=== PATIENT | male | born 1940 | race Caucasian/White ===

== ENCOUNTER → 2017-05-05 | Outpatient (CLI) | payer MEDICARE, OTHER | END | disposition home or self-care (01) | LOC: HKI 13:48 | DX: M17.11 Unilateral primary osteoarthritis, right knee (principal) | CPT/HCPCS: 73562; 73562-50 ==

== ENCOUNTER 2017-05-08 01:54 | Emergency (ER) | payer MEDICARE, OTHER ==
[2017-05-08] MEDS: SILVER NITRATE SWAB TOP ×2 (02:24)
[2017-05-08] MEDS: LIDOCAINE 1% (MDV) 20 ML INJ SC (02:24)
[2017-05-08] MEDS: GELATIN POWDER 1 GM KIT TOP (02:24)
[2017-05-08] MEDS: DIPHTH/TET/ACEL PERTUSS (ADULT) 0.5 ML VIAL IM* (02:33)
[2017-05-08] MEDS: LIDOCAINE 2% (MDV) 20 ML INJ INJ (02:42)
== END 2017-05-08 04:38 | disposition home or self-care (01) ==
LOC: FTE 01:54
DX: S61.212A Laceration without foreign body of right middle finger without damage to nail, initial encounter (principal); I10 Essential (primary) hypertension; I50.9 Heart failure, unspecified; I25.10 Atherosclerotic heart disease of native coronary artery without angina pectoris; W29.0XXA Contact with powered kitchen appliance, initial encounter; Y92.9 Unspecified place or not applicable; Z79.01 Long term (current) use of anticoagulants; Z87.891 Personal history of nicotine dependence; Z98.61 Coronary angioplasty status; Z79.82 Long term (current) use of aspirin; Z95.0 Presence of cardiac pacemaker
CPT/HCPCS: 99282

== ENCOUNTER → 2017-05-19 | Outpatient (CLI) | payer MEDICARE, OTHER | END | disposition home or self-care (01) | LOC: HKI 13:58 | DX: Z01.818 Encounter for other preprocedural examination (principal) | CPT/HCPCS: G0463 ==

== ENCOUNTER → 2017-05-22 | Outpatient (CLI) | payer MEDICARE, OTHER | END | disposition home or self-care (01) | LOC: LAB 08:00 | DX: Z02.9 Encounter for administrative examinations, unspecified (principal) | CPT/HCPCS: 87081 ==

== ENCOUNTER 2017-06-01 06:00 | Inpatient (IN) | payer MEDICARE, OTHER ==
[2017-06-01] MEDS: DEXAMETHASONE 4 MG/ML 1 ML INJ IV (06:59)
[2017-06-01] MEDS: LANSOPRAZOLE 30 MG CAP PO (06:59)
[2017-06-01] MEDS: ONDANSETRON 4 MG INJ IV ×4 (06:59→22:30)
[2017-06-01] MEDS ORDERED: DEXAMETHASONE 4 MG/ML 1 ML INJ (07:00)
[2017-06-01] MEDS ORDERED: ROCURONIUM 50 MG INJ (07:00)
[2017-06-01] MEDS ORDERED: ONDANSETRON 4 MG INJ (07:00)
[2017-06-01] MEDS ORDERED: LIDOCAINE 2% (SDV) 5 ML INJ (07:00)
[2017-06-01] MEDS: ACETAMINOPHEN 1000MG/100ML IV 100 ML IVPB (07:00)
[2017-06-01] MEDS ORDERED: PROPOFOL 200 MG INJ (07:00)
[2017-06-01 07:25] LABS: ADD MAN DIFF? NO
[2017-06-01 07:30] LABS: BASOPHILS % 0.4 % (0.0-2.0); EOSINOPHILS # 0.1 10^3/ul (0.0-0.5); HEMATOCRIT 39.5 % (42.0-52.0); HEMOGLOBIN 13.8 g/dl (14.0-18.0); LYMPHOCYTES # 0.9 10^3/ul (0.8-2.9); LYMPHOCYTES % 12.4 % (15.0-51.0); MEAN CORPUSCULAR HEMOGLOBIN 33.6 pg (29.0-33.0); MEAN CORPUSCULAR HGB CONC 34.9 g/dl (32.0-37.0); MEAN CORPUSCULAR VOLUME 96.1 fl (82.0-101.0); MEAN PLATELET VOLUME 10.9 fl (7.4-10.4); MONOCYTE # 0.7 10^3/ul (0.3-0.9); MONOCYTES % 9.5 % (0.0-11.0); NEUTROPHIL # 5.1 10^3/ul (1.6-7.5); PLATELET COUNT 108 10^3/UL (140-415); RED BLOOD COUNT 4.11 10^6/ul (4.70-6.10); RED CELL DISTRIBUTION WIDTH 14.4 % (11.5-14.5)
[2017-06-01 07:30] LABS: WHITE BLOOD COUNT 6.8 10^3/ul (4.8-10.8)
[2017-06-01 07:46] LABS: INR 1.24; PARTIAL THROMBOPLASTIN TIME 26.8 Sec (25.0-35.0); PROTIME 15.8 Sec (11.9-14.9); PT RATIO 1.2
[2017-06-01 07:47] LABS: ALANINE AMINOTRANSFERASE 31 IU/L (13-69); ALBUMIN 3.8 g/dl (3.3-4.9); ALBUMIN/GLOBULIN RATIO 1.11; ALKALINE PHOSPHATASE 107 IU/L (42-121); ANION GAP 15 (8-16); ASPARTATE AMINO TRANSFERASE 29 IU/L (15-46); BILIRUBIN,INDIRECT 0.6 mg/dl (0-1.1); BILIRUBIN,TOTAL 0.6 mg/dl (0.2-1.3); CARBON DIOXIDE 26 mmol/L (21-31); CHLORIDE 104 mmol/L (97-110); GLUCOSE 99 mg/dl (70-220); TOTAL PROTEIN 7.2 g/dl (6.1-8.1)
[2017-06-01 07:48] LABS: BLOOD UREA NITROGEN 45 mg/dl (7-20); CALCIUM 9.1 mg/dl (8.4-10.2); POTASSIUM 4.6 mmol/L (3.5-5.1); SODIUM 140 mmol/L (135-144)
[2017-06-01] MEDS ORDERED: BUPIVACAINE 0.75%/DEXT (SPINAL) 2 ML INJ (07:52)
[2017-06-01] MEDS ORDERED: EPINEPHrine 1 MG INJ (07:53)
[2017-06-01] MEDS ORDERED: FENTAnyl 50 MCG/ML VIAL (07:54)
[2017-06-01] MEDS ORDERED: MIDAZOLAM 1 MG/ML 2 ML INJ (07:54)
[2017-06-01] MEDS: CEFAZOLIN 2 GM/50 ML (PMX) 50 ML (FOR WT < 120 KG) IVPB (08:00)
[2017-06-01] MEDS ORDERED: LACTATED RINGER'S 1,000 ML IV (08:00)
[2017-06-01] MEDS ORDERED: PHENYLephrine (100 MCG/ML) 5ML SYG (08:07)
[2017-06-01] MEDS ORDERED: PHENYLephrine 10 MG INJ (08:07)
[2017-06-01] MEDS: TRANEXAMIC ACID 1,000 MG in D5W 100 ML AT INCISION X1 IVPB (08:15)
[2017-06-01] MEDS: BACITRACIN 50000 UNITS INJ (09:01)
[2017-06-01] MEDS: POLYMYXIN B 500000 UNIT INJ (09:01)
[2017-06-01] MEDS: TRANEXAMIC ACID 1,000 MG in D5W 100 ML AT CLOSURE X1 IVPB (09:10)
[2017-06-01] MEDS ORDERED: CEFAZOLIN 1 GM INJ (09:53)
[2017-06-01] MEDS ORDERED: SUGAMMADEX SODIUM 200 MG/2 ML VIAL IV (09:53)
[2017-06-01] MEDS ORDERED: KETOROLAC 15 MG INJ IV (10:30)
[2017-06-01] MEDS ORDERED: BETHANECHOL 25 MG TAB PO (10:30)
[2017-06-01] MEDS ORDERED: hydrALAzine 20 MG INJ IV (10:30)
[2017-06-01] MEDS ORDERED: NA PHOSPHATE/BIPHOS 133 ML ENEMA PR (10:30)
[2017-06-01] MEDS ORDERED: KETOROLAC 30 MG INJ IV (10:30)
[2017-06-01] MEDS ORDERED: METOCLOPRAMIDE 10 MG INJ IV (10:30)
[2017-06-01] MEDS ORDERED: HYDROmorphONE (0.2 MG/ML) 10ML SYG IV ×3 (10:30)
[2017-06-01] MEDS ORDERED: LABETALOL HCL 20MG INJ IV (10:30)
[2017-06-01] MEDS ORDERED: ALBUTEROL 0.083% (NEB) 2.5 MG/3 ML AMP HHN (10:30)
[2017-06-01] MEDS ORDERED: oxyCODONE 5 MG TAB PO ×2 (10:30)
[2017-06-01] MEDS ORDERED: ONDANSETRON 4 MG INJ IV (10:30)
[2017-06-01] MEDS ORDERED: MEPERIDINE 25 MG INJ IV (10:30)
[2017-06-01] MEDS ORDERED: OXYCODONE/ACETAMINOPHEN (5/325) TAB PO ×2 (10:30)
[2017-06-01] MEDS ORDERED: BISACODYL 10 MG SUPP PR (10:30)
[2017-06-01] MEDS ORDERED: EPHEDrine SULFATE 50 MG/5 ML SYG IV (10:30)
[2017-06-01] MEDS ORDERED: MAGNESIUM HYDROXIDE 30ML CUP PO (10:30)
[2017-06-01] MEDS ORDERED: DIPHENHYDRAMINE 50 MG INJ IV ×2 (10:30)
[2017-06-01] MEDS ORDERED: MIDAZOLAM 1 MG/ML 2 ML INJ IV (10:30)
[2017-06-01] MEDS ORDERED: TRIMETHOBENZAMIDE 100 MG/ML VIAL IM (10:30)
[2017-06-01] MEDS ORDERED: NALOXONE (0.4 MG/ML) INJ IV (10:30)
[2017-06-01] MEDS: CEFAZOLIN 1 GM/50 ML (PMX) 50 ML IVPB ×2 (10:55→18:14)
[2017-06-01] MEDS: DOCUSATE SODIUM 100 MG CAP PO (10:58)
[2017-06-01] MEDS: SOD CHLORIDE 0.9% 1,000 ML IV ×2 (13:59→22:34)
[2017-06-01] MEDS: LISINOPRIL 5 MG TAB PO (14:00)
[2017-06-01] MEDS ORDERED: NITROGLYCERIN AEROSOL (4.9 GM) SL (14:00)
[2017-06-01] MEDS: WARFARIN 3 MG TAB PO (18:40)
[2017-06-01] MEDS: RANOLAZINE (SR) 500 MG TAB PO (21:37)
[2017-06-01] MEDS: oxyCODONE 5 MG TAB PO (21:37)
[2017-06-01] MEDS: GABAPENTIN 100 MG CAP PO (21:38)
[2017-06-01] MEDS: ATORVASTATIN 10 MG TAB PO (21:38)
[2017-06-01] MEDS: CELECOXIB 100 MG CAP PO (22:25)
[2017-06-02] MEDS: SOD CHLORIDE 0.9% 1,000 ML IV ×2 (03:30→17:35)
[2017-06-02] MEDS: CEFAZOLIN 1 GM/50 ML (PMX) 50 ML IVPB (03:33)
[2017-06-02] MEDS: oxyCODONE 5 MG TAB PO ×3 (03:52→19:04)
[2017-06-02] MEDS: ONDANSETRON 4 MG INJ IV (04:18)
[2017-06-02 05:40] LABS: ADD MAN DIFF? NO
[2017-06-02 05:45] LABS: ABNORMAL IP MESSAGE 1; BASOPHILS % 0.1 % (0.0-2.0); EOSINOPHILS % 0.1 % (0.0-7.0); HEMATOCRIT 32.4 % (42.0-52.0); HEMOGLOBIN 11.1 g/dl (14.0-18.0); LYMPHOCYTES # 0.5 10^3/ul (0.8-2.9); LYMPHOCYTES % 4.1 % (15.0-51.0); MEAN CORPUSCULAR HEMOGLOBIN 33.7 pg (29.0-33.0); MEAN CORPUSCULAR HGB CONC 34.3 g/dl (32.0-37.0); MEAN CORPUSCULAR VOLUME 98.5 fl (82.0-101.0); MEAN PLATELET VOLUME 11.3 fl (7.4-10.4); MONOCYTE # 0.8 10^3/ul (0.3-0.9); MONOCYTES % 7.5 % (0.0-11.0); NEUTROPHIL # 9.6 10^3/ul (1.6-7.5); NEUTROPHILS % 87.6 % (39.0-77.0); PLATELET COUNT 88 10^3/UL (140-415); POSITIVE DIFF @See below; RED BLOOD COUNT 3.29 10^6/ul (4.70-6.10); RED CELL DISTRIBUTION WIDTH 14.3 % (11.5-14.5)
[2017-06-02 06:13] LABS: MAGNESIUM 1.8 mg/dl (1.7-2.5)
[2017-06-02 06:16] LABS: INR 1.33; PARTIAL THROMBOPLASTIN TIME 28.1 Sec (25.0-35.0); PROTIME 16.7 Sec (11.9-14.9); PT RATIO 1.3
[2017-06-02 06:23] LABS: ANION GAP 12 (8-16); BLOOD UREA NITROGEN 31 mg/dl (7-20); CALCIUM 8.5 mg/dl (8.4-10.2); CARBON DIOXIDE 24 mmol/L (21-31); CHLORIDE 105 mmol/L (97-110); CREATININE 0.92 mg/dl (0.61-1.24); GLUCOSE 140 mg/dl (70-220); POTASSIUM 5.3 mmol/L (3.5-5.1); SODIUM 136 mmol/L (135-144)
[2017-06-02] MEDS: PANTOPRAZOLE (EC) 40 MG TAB PO (06:29)
[2017-06-02] MEDS: DOCUSATE SODIUM 100 MG CAP PO ×2 (08:20→21:01)
[2017-06-02] MEDS: RANOLAZINE (SR) 500 MG TAB PO ×2 (08:21→21:05)
[2017-06-02] MEDS: CELECOXIB 100 MG CAP PO (08:21)
[2017-06-02] MEDS: GABAPENTIN 100 MG CAP PO ×2 (08:21→21:04)
[2017-06-02] MEDS: FERROUS FUMARATE (SR) TAB PO ×2 (08:21→21:04)
[2017-06-02] MEDS: LISINOPRIL 5 MG TAB PO (08:22)
[2017-06-02] MEDS: WARFARIN 5 MG TAB PO (10:04)
[2017-06-02 16:12] LABS: POTASSIUM 5.2 mmol/L (3.5-5.1)
[2017-06-02] MEDS: ATORVASTATIN 10 MG TAB PO (21:04)
[2017-06-03] MEDS: oxyCODONE 5 MG TAB PO ×2 (05:16→12:07)
[2017-06-03 05:47] LABS: ADD MAN DIFF? NO
[2017-06-03] MEDS: PANTOPRAZOLE (EC) 40 MG TAB PO (05:49)
[2017-06-03 05:50] LABS: ABNORMAL IP MESSAGE 1; BASOPHILS % 0.1 % (0.0-2.0); EOSINOPHILS # 0.1 10^3/ul (0.0-0.5); EOSINOPHILS % 1.6 % (0.0-7.0); HEMATOCRIT 32.3 % (42.0-52.0); HEMOGLOBIN 11.1 g/dl (14.0-18.0); LYMPHOCYTES # 0.7 10^3/ul (0.8-2.9); LYMPHOCYTES % 9.7 % (15.0-51.0); MEAN CORPUSCULAR HEMOGLOBIN 33.9 pg (29.0-33.0); MEAN CORPUSCULAR HGB CONC 34.4 g/dl (32.0-37.0); MEAN CORPUSCULAR VOLUME 98.8 fl (82.0-101.0); MEAN PLATELET VOLUME 11.1 fl (7.4-10.4); MONOCYTE # 0.9 10^3/ul (0.3-0.9); MONOCYTES % 11.2 % (0.0-11.0); NEUTROPHIL # 5.8 10^3/ul (1.6-7.5); NEUTROPHILS % 76.9 % (39.0-77.0); PLATELET COUNT 90 10^3/UL (140-415); POSITIVE DIFF @See below; RED BLOOD COUNT 3.27 10^6/ul (4.70-6.10); RED CELL DISTRIBUTION WIDTH 14.2 % (11.5-14.5)
[2017-06-03 05:50] LABS: WHITE BLOOD COUNT 7.6 10^3/ul (4.8-10.8)
[2017-06-03 06:10] LABS: PROTIME 17.4 Sec (11.9-14.9); PT RATIO 1.4
[2017-06-03 06:11] LABS: PARTIAL THROMBOPLASTIN TIME 31.1 Sec (25.0-35.0)
[2017-06-03 06:16] LABS: ANION GAP 11 (8-16); BLOOD UREA NITROGEN 30 mg/dl (7-20); CALCIUM 8.8 mg/dl (8.4-10.2); CARBON DIOXIDE 28 mmol/L (21-31); CHLORIDE 102 mmol/L (97-110); CREATININE 1.07 mg/dl (0.61-1.24); GLUCOSE 91 mg/dl (70-220); POTASSIUM 5.5 mmol/L (3.5-5.1); SODIUM 135 mmol/L (135-144)
[2017-06-03] MEDS: DOCUSATE SODIUM 100 MG CAP PO ×2 (09:29→21:27)
[2017-06-03] MEDS: RANOLAZINE (SR) 500 MG TAB PO ×2 (09:31→21:28)
[2017-06-03] MEDS: FERROUS FUMARATE (SR) TAB PO ×2 (09:31→21:28)
[2017-06-03] MEDS: GABAPENTIN 100 MG CAP PO ×2 (09:31→21:28)
[2017-06-03] MEDS: LISINOPRIL 5 MG TAB PO (09:32)
[2017-06-03] MEDS: SOD CHLORIDE 0.9% 1,000 ML IV ×2 (12:04→23:20)
[2017-06-03 16:00] LABS: ADD UMIC YES; UR ASCORBIC ACID NEGATIVE (NEGATIVE); UR BILIRUBIN (Dip) NEGATIVE (NEGATIVE); UR BLOOD (Dip) 2+ mg/dL (NEGATIVE); UR CLARITY SLIGHTLY CLOUDY (CLEAR); UR COLOR AMBER (YELLOW); UR GLUCOSE (Dip) NEGATIVE (NEGATIVE); UR KETONES (Dip) NEGATIVE (NEGATIVE); UR LEUKOCYTE ESTERASE (Dip) NEGATIVE Leu/ul (NEGATIVE); UR MUCUS MODERATE /HPF (NONE SEEN); UR NITRITE (Dip) NEGATIVE (NEGATIVE); UR RBC 126 /HPF (0-5); UR SPECIFIC GRAVITY (Dip) 1.018 (1.003-1.030); UR SQUAMOUS EPITHELIAL CELL FEW /HPF (FEW); UR TOTAL PROTEIN (Dip) NEGATIVE (NEGATIVE); UR UROBILINOGEN (Dip) NEGATIVE (NEGATIVE); UR WBC 12 /HPF (0-5)
[2017-06-03] MEDS: WARFARIN 5 MG TAB GTB (17:33)
[2017-06-03] MEDS: ATORVASTATIN 10 MG TAB PO (21:28)
[2017-06-04 05:37] LABS: ADD MAN DIFF? NO
[2017-06-04 05:41] LABS: ABNORMAL IP MESSAGE 1; BASOPHILS % 0.1 % (0.0-2.0); EOSINOPHILS # 0.1 10^3/ul (0.0-0.5); EOSINOPHILS % 1.2 % (0.0-7.0); HEMATOCRIT 31.9 % (42.0-52.0); LYMPHOCYTES # 0.5 10^3/ul (0.8-2.9); LYMPHOCYTES % 6.4 % (15.0-51.0); MEAN CORPUSCULAR HEMOGLOBIN 33.6 pg (29.0-33.0); MEAN CORPUSCULAR HGB CONC 34.5 g/dl (32.0-37.0); MEAN CORPUSCULAR VOLUME 97.6 fl (82.0-101.0); MEAN PLATELET VOLUME 10.7 fl (7.4-10.4); MONOCYTE # 1.1 10^3/ul (0.3-0.9); MONOCYTES % 14.1 % (0.0-11.0); NEUTROPHIL # 5.8 10^3/ul (1.6-7.5); NEUTROPHILS % 77.4 % (39.0-77.0); PLATELET COUNT 90 10^3/UL (140-415); POSITIVE DIFF @See below; RED BLOOD COUNT 3.27 10^6/ul (4.70-6.10); RED CELL DISTRIBUTION WIDTH 14.2 % (11.5-14.5)
[2017-06-04 05:41] LABS: WHITE BLOOD COUNT 7.5 10^3/ul (4.8-10.8)
[2017-06-04 06:02] LABS: INR 1.41; PROTIME 17.5 Sec (11.9-14.9); PT RATIO 1.4
[2017-06-04 06:03] LABS: PARTIAL THROMBOPLASTIN TIME 38.8 Sec (25.0-35.0)
[2017-06-04 06:34] LABS: ANION GAP 11 (8-16); BLOOD UREA NITROGEN 34 mg/dl (7-20); CALCIUM 8.3 mg/dl (8.4-10.2); CARBON DIOXIDE 25 mmol/L (21-31); CHLORIDE 101 mmol/L (97-110); CREATININE 1.01 mg/dl (0.61-1.24); GLUCOSE 105 mg/dl (70-220); POTASSIUM 5.6 mmol/L (3.5-5.1); SODIUM 131 mmol/L (135-144)
[2017-06-04 06:43] LABS: PROTIME 18.4 Sec (11.9-14.9); PT RATIO 1.4
[2017-06-04] MEDS: PANTOPRAZOLE (EC) 40 MG TAB PO (06:58)
[2017-06-04] MEDS: oxyCODONE 5 MG TAB PO (06:59)
[2017-06-04] MEDS: DOCUSATE SODIUM 100 MG CAP PO ×2 (09:09→20:21)
[2017-06-04] MEDS: RANOLAZINE (SR) 500 MG TAB PO ×2 (09:11→22:40)
[2017-06-04] MEDS: GABAPENTIN 100 MG CAP PO ×2 (09:11→20:20)
[2017-06-04] MEDS: FERROUS FUMARATE (SR) TAB PO ×2 (09:11→20:20)
[2017-06-04] MEDS: SOD CHLORIDE 0.9% 500 ML IV (10:00)
[2017-06-04] MEDS: SOD CHLORIDE 0.9% 1,000 ML IV ×2 (10:00→13:04)
[2017-06-04 11:15] LABS: CREATINE KINASE 78 IU/L (23-200)
[2017-06-04] MEDS: SENNA/DOCUSATE NA (8.6MG/50MG) TAB PO (14:13)
[2017-06-04] MEDS: WARFARIN 5 MG TAB GTB (17:48)
[2017-06-04] MEDS: ATORVASTATIN 10 MG TAB PO (20:20)
[2017-06-05] MEDS: SOD CHLORIDE 0.9% 1,000 ML IV (05:16)
[2017-06-05] MEDS: PANTOPRAZOLE (EC) 40 MG TAB PO (05:17)
[2017-06-05] MEDS: oxyCODONE 5 MG TAB PO (05:59)
[2017-06-05 06:53] LABS: ADD MAN DIFF? NO
[2017-06-05 06:57] LABS: ABNORMAL IP MESSAGE 1; BASOPHILS % 0.1 % (0.0-2.0); EOSINOPHILS # 0.1 10^3/ul (0.0-0.5); EOSINOPHILS % 1.9 % (0.0-7.0); HEMATOCRIT 29.3 % (42.0-52.0); HEMOGLOBIN 10.1 g/dl (14.0-18.0); LYMPHOCYTES # 0.6 10^3/ul (0.8-2.9); LYMPHOCYTES % 9.3 % (15.0-51.0); MEAN CORPUSCULAR HEMOGLOBIN 33.6 pg (29.0-33.0); MEAN CORPUSCULAR HGB CONC 34.5 g/dl (32.0-37.0); MEAN CORPUSCULAR VOLUME 97.3 fl (82.0-101.0); MEAN PLATELET VOLUME 10.8 fl (7.4-10.4); MONOCYTES % 14.5 % (0.0-11.0); PLATELET COUNT 95 10^3/UL (140-415); POSITIVE DIFF @See below; RED BLOOD COUNT 3.01 10^6/ul (4.70-6.10)
[2017-06-05 06:57] LABS: WHITE BLOOD COUNT 6.8 10^3/ul (4.8-10.8)
[2017-06-05 07:17] LABS: INR 1.65; PROTIME 19.9 Sec (11.9-14.9); PT RATIO 1.6
[2017-06-05 07:18] LABS: PARTIAL THROMBOPLASTIN TIME 43.5 Sec (25.0-35.0)
[2017-06-05 07:46] LABS: ANION GAP 11 (8-16); BLOOD UREA NITROGEN 25 mg/dl (7-20); CALCIUM 8.7 mg/dl (8.4-10.2); CARBON DIOXIDE 27 mmol/L (21-31); CHLORIDE 103 mmol/L (97-110); CREATININE 0.98 mg/dl (0.61-1.24); GLUCOSE 103 mg/dl (70-220); SODIUM 136 mmol/L (135-144)
[2017-06-05 07:48] LABS: POTASSIUM 5.4 mmol/L (3.5-5.1)
[2017-06-05] MEDS: FUROSEMIDE 40 MG TAB PO (09:50)
[2017-06-05] MEDS: NA POLYST SULFON 15 GM/60 ML BTL PO (09:50)
[2017-06-05] MEDS: ASPIRIN (EC) 81 MG TAB PO (09:51)
[2017-06-05] MEDS: RANOLAZINE (SR) 500 MG TAB PO (09:51)
[2017-06-05] MEDS: GABAPENTIN 100 MG CAP PO (09:51)
[2017-06-05] MEDS: WARFARIN 5 MG TAB PO (09:51)
[2017-06-05] MEDS: FERROUS FUMARATE (SR) TAB PO (09:51)
== END 2017-06-05 16:40 | DRG 470 ==
LOC: REC 06:00 → MS1 11:20
PROC: 0SRC069 Replacement of Right Knee Joint with Oxidized Zirconium on Polyethylene Synthetic Substitute, Cemented, Open Approach (ICD-10-PCS; principal; 2017-06-01 07:51)
DX: M17.11 Unilateral primary osteoarthritis, right knee (principal); E87.1 Hypo-osmolality and hyponatremia; I42.9 Cardiomyopathy, unspecified; I50.30 Unspecified diastolic (congestive) heart failure; I48.91 Unspecified atrial fibrillation; Z79.01 Long term (current) use of anticoagulants; E87.5 Hyperkalemia; E78.5 Hyperlipidemia, unspecified; Z95.810 Presence of automatic (implantable) cardiac defibrillator; I25.2 Old myocardial infarction; I11.0 Hypertensive heart disease with heart failure; I25.118 Atherosclerotic heart disease of native coronary artery with other forms of angina pectoris; R35.0 Frequency of micturition; R39.15 Urgency of urination
CPT/HCPCS: 73560; 80048; 80053; 81001; 82550; 83735; 84132; 85025; 85610; 85730; 86850; 86900; 86901; 87081; 87086; 88304; 88311; 97110; 97116; 97162; 97165; 97530; 99217

== ENCOUNTER → 2017-06-12 | Outpatient (CLI) | payer MEDICARE, OTHER | END | disposition home or self-care (01) | LOC: HKI 13:20 | DX: Z47.1 Aftercare following joint replacement surgery (principal); I82.409 Acute embolism and thrombosis of unspecified deep veins of unspecified lower extremity; Z79.01 Long term (current) use of anticoagulants; Z96.651 Presence of right artificial knee joint ==

== ENCOUNTER 2017-11-06 06:23 | Emergency (ER) | payer MEDICARE, OTHER | END 2017-11-06 08:10 | disposition home or self-care (01) | LOC: FTE 06:23 | DX: S30.0XXA Contusion of lower back and pelvis, initial encounter (principal); I25.2 Old myocardial infarction; I10 Essential (primary) hypertension; I25.10 Atherosclerotic heart disease of native coronary artery without angina pectoris; W18.2XXA Fall in (into) shower or empty bathtub, initial encounter; Z79.01 Long term (current) use of anticoagulants; Z79.82 Long term (current) use of aspirin; Z95.0 Presence of cardiac pacemaker; Z95.1 Presence of aortocoronary bypass graft; Z98.61 Coronary angioplasty status; Z87.891 Personal history of nicotine dependence | CPT/HCPCS: 72170; 73550; 73552-50; 99284-25 ==

== ENCOUNTER 2018-09-11 10:23 | Day surgery (SDC) | payer MEDICARE, OTHER ==
[2018-09-11 11:54] LABS: ADD MAN DIFF? NO
[2018-09-11] MEDS ORDERED: HEPARIN 1000 UNITS/ML 10 ML INJ (11:57)
[2018-09-11] MEDS ORDERED: MIDAZOLAM 1 MG/ML 2 ML INJ (11:58)
[2018-09-11] MEDS ORDERED: LIDOCAINE 1% (MDV) 20 ML INJ (11:58)
[2018-09-11] MEDS ORDERED: IODIXANOL LOCM 100 ML BTL (11:58)
[2018-09-11] MEDS ORDERED: FENTAnyl 50 MCG/ML VIAL (11:58)
[2018-09-11] MEDS ORDERED: VERAPAMIL 5 MG INJ (11:58)
[2018-09-11] MEDS ORDERED: NITROGLYCERIN (IC) 100 MCG/ML INJ (11:59)
[2018-09-11] MEDS ORDERED: SOD CHLORIDE 0.45% 1,000 ML IV (12:00)
[2018-09-11 12:01] LABS: WHITE BLOOD COUNT 5.1 10^3/ul (4.8-10.8)
[2018-09-11 12:01] LABS: BASOPHILS % 0.4 % (0.0-2.0); EOSINOPHILS # 0.1 10^3/ul (0.0-0.5); EOSINOPHILS % 2.5 % (0.0-7.0); HEMATOCRIT 34.4 % (42.0-52.0); HEMOGLOBIN 11.7 g/dl (14.0-18.0); LYMPHOCYTES # 0.7 10^3/ul (0.8-2.9); LYMPHOCYTES % 12.7 % (15.0-51.0); MEAN CORPUSCULAR HEMOGLOBIN 33.5 pg (29.0-33.0); MEAN CORPUSCULAR VOLUME 98.6 fl (82.0-101.0); MEAN PLATELET VOLUME 10.8 fl (7.4-10.4); MONOCYTE # 0.7 10^3/ul (0.3-0.9); MONOCYTES % 13.6 % (0.0-11.0); NEUTROPHIL # 3.6 10^3/ul (1.6-7.5); NEUTROPHILS % 70.4 % (39.0-77.0); PLATELET COUNT 123 10^3/UL (140-415); RED BLOOD COUNT 3.49 10^6/ul (4.70-6.10); RED CELL DISTRIBUTION WIDTH 13.8 % (11.5-14.5)
[2018-09-11] MEDS: DIPHENHYDRAMINE 50 MG CAP PO (12:10)
[2018-09-11] MEDS: DIAZEPAM 5 MG TAB PO (12:10)
[2018-09-11] MEDS: FAMOTIDINE 20 MG TAB PO (12:10)
[2018-09-11 12:21] LABS: ANION GAP 7 (5-13); CALCIUM 9.1 mg/dl (8.4-10.2); CARBON DIOXIDE 26 mmol/L (21-31); CHLORIDE 103 mmol/L (97-110); CHOL/HDL RATIO 2.7 RATIO; CHOLESTEROL 130 mg/dl (100-200); GLUCOSE 88 mg/dl (70-220); HDL CHOLESTEROL 48 mg/dl (31-75); LDL CHOLESTEROL,CALCULATED 73 mg/dl; POTASSIUM 4.8 mmol/L (3.5-5.1); SODIUM 136 mmol/L (135-144); TRIGLYCERIDES 45 mg/dl (0-149)
[2018-09-11 12:24] LABS: BLOOD UREA NITROGEN 37 mg/dl (7-20); CREATININE 1.41 mg/dl (0.61-1.24)
[2018-09-11 12:29] LABS: INR 1.47; PROTIME 17.9 Sec (11.9-14.9); PT RATIO 1.4
[2018-09-11 12:30] LABS: PARTIAL THROMBOPLASTIN TIME 32.7 Sec (23.0-35.0)
[2018-09-11] MEDS ORDERED: BIVALIRUDIN 250MG /NS 50 ML 50 ML IVPB (13:27)
[2018-09-11] MEDS ORDERED: ADENOSINE 30 ML (13:32)
[2018-09-11] MEDS ORDERED: SOD CHLORIDE 0.9% 1,000 ML IV (13:56)
[2018-09-11] MEDS ORDERED: morphine 2 MG INJ IV (14:00)
[2018-09-11] MEDS ORDERED: ONDANSETRON 4 MG INJ IV (14:00)
[2018-09-11] MEDS ORDERED: AL HYDROX/MG HYDROX/SIMETH 30 ML CUP PO (14:00)
[2018-09-11] MEDS: ACETAMINOPHEN 325 MG TAB PO (18:06)
== END 2018-09-11 19:03 | disposition home or self-care (01) ==
LOC: SDS 10:23
DX: I25.10 Atherosclerotic heart disease of native coronary artery without angina pectoris (principal); E78.5 Hyperlipidemia, unspecified; R94.39 Abnormal result of other cardiovascular function study; I42.9 Cardiomyopathy, unspecified; I11.0 Hypertensive heart disease with heart failure; I50.9 Heart failure, unspecified; E78.00 Pure hypercholesterolemia, unspecified; Z79.82 Long term (current) use of aspirin; F17.200 Nicotine dependence, unspecified, uncomplicated; Z95.810 Presence of automatic (implantable) cardiac defibrillator
CPT/HCPCS: 71045; 80048; 80061; 85025; 85610; 85730; 93005; 93458; 93571

== ENCOUNTER 2018-10-20 11:40 | Emergency (ER) | payer MEDICARE, OTHER ==
[2018-10-20 12:12] LABS: ADD MAN DIFF? NO
[2018-10-20 12:14] LABS: BASOPHILS % 0.4 % (0.0-2.0); EOSINOPHILS # 0.2 10^3/ul (0.0-0.5); HEMATOCRIT 33.5 % (42.0-52.0); HEMOGLOBIN 11.4 g/dl (14.0-18.0); LYMPHOCYTES # 0.6 10^3/ul (0.8-2.9); LYMPHOCYTES % 11.8 % (15.0-51.0); MEAN CORPUSCULAR HEMOGLOBIN 33.2 pg (29.0-33.0); MEAN CORPUSCULAR VOLUME 97.7 fl (82.0-101.0); MEAN PLATELET VOLUME 11.4 fl (7.4-10.4); MONOCYTE # 0.8 10^3/ul (0.3-0.9); MONOCYTES % 15.4 % (0.0-11.0); NEUTROPHIL # 3.5 10^3/ul (1.6-7.5); NEUTROPHILS % 68.8 % (39.0-77.0); PLATELET COUNT 104 10^3/UL (140-415); RED BLOOD COUNT 3.43 10^6/ul (4.70-6.10); RED CELL DISTRIBUTION WIDTH 14.8 % (11.5-14.5)
[2018-10-20 12:14] LABS: WHITE BLOOD COUNT 5.1 10^3/ul (4.8-10.8)
[2018-10-20 12:44] LABS: ANION GAP 7 (5-13); BLOOD UREA NITROGEN 49 mg/dl (7-20); CALCIUM 8.7 mg/dl (8.4-10.2); CARBON DIOXIDE 24 mmol/L (21-31); CHLORIDE 102 mmol/L (97-110); CREATININE 1.55 mg/dl (0.61-1.24); GLUCOSE 86 mg/dl (70-220); SODIUM 133 mmol/L (135-144)
[2018-10-20 12:55] LABS: TROPONIN-I < 0.012 ng/ml (0.000-0.120)
== END 2018-10-20 15:14 | disposition home or self-care (01) ==
LOC: E/R 11:40
DX: N17.9 Acute kidney failure, unspecified (principal); I95.9 Hypotension, unspecified; I50.9 Heart failure, unspecified; Z79.82 Long term (current) use of aspirin; Z79.01 Long term (current) use of anticoagulants; Z95.0 Presence of cardiac pacemaker; Z87.891 Personal history of nicotine dependence
CPT/HCPCS: 36415; 71045; 80048; 84484; 85025; 93005; 99285-25